=== PATIENT | female | born 1960 | race Caucasian/White ===

== ENCOUNTER → 2024-03-20 08:06 | Outpatient (REF) | payer OTHER, SELFPAY | LOC: RST 08:06 | PROVIDERS: ATTENDING PHYSICIAN Internal Medicine Gastroenterology; FAMILY PHYSICIAN Student in an Organized Health Care Education/Training Program | DX: R13.19 Other dysphagia (principal); R49.0 Dysphonia; J39.8 Other specified diseases of upper respiratory tract | CPT/HCPCS: 74230; 92611 ==